=== PATIENT | male | born 1990 | race Caucasian/White ===

== ENCOUNTER 2022-03-14 04:23 | Emergency (ER) | payer SELFPAY ==
[~2022-03-14] VITALS: Ht 175.3 cm; Wt 74.8 kg
[2022-03-14 04:30] VITALS: BP 124/74
[2022-03-14] MEDS ORDERED: PERCOCET 325 MG1 TA2 PO (10:30)
== END 2022-03-14 05:45 | disposition home or self-care (01) ==
LOC: ED 04:23
DX: M79.672 Pain in left foot (principal); Z28.310 Unvaccinated for COVID-19; W14.XXXA Fall from tree, initial encounter